=== PATIENT | female | born 1960 | race Caucasian/White ===

== ENCOUNTER 2016-07-01 19:17 | Emergency (ER) | payer OTHER ==
[2016-07-01] MEDS ORDERED: ONDANSETRON ODT 8 MG TAB ONE (19:21)
[2016-07-01] MEDS ORDERED: LIDOCAINE VIS-MYLANTA 30 ML UD PO ONE (19:50)
[2016-07-01 20:49] VITALS: TEMP 100; O2SAT 95
[2016-07-01] MEDS ORDERED: PROMETHAZINE HCL INJ 25 MG in SODIUM CHLORIDE 0.9% 50ML 50 ML IVPB ONE (21:25)
[2016-07-01] MEDS ORDERED: SUCRALFATE 1 GM/10 ML 1 GM UD PO ONE (21:25)
--- NOTE | 2016-07-01 21:38 | CT ---
EXAM DESCRIPTION: CT ABDOMEN PELVIS WITH IV CONTRAST CLINICAL HISTORY: 55 y/o Fcentral abd pain for 24 hours COMPARISON: None. TECHNIQUE: Contiguous axial images were obtained through the abdomen and pelvis following IV contrast. Reformatted images obtained. FINDINGS: Mild atelectatic changes. The liver, spleen, pancreas and adrenal glands appear unremarkable. Small renal cysts. No hydronephrosis. Changes from previous cholecystectomy. The abdominal aorta appears unremarkable. There is minimal wall thickening within loops of small bowel suggesting changes from infectious or inflammatory colitis. There is fluid within multiple non dilated loops of small bowel and there is fluid in the proximal colon. The transverse colon and descending colon are slightly distended with stool. The appendix appears unremarkable. Changes from previous hysterectomy. No free pelvic fluid. Postsurgical changes in the lower lumbar spine. Degenerative changes in the spine. There is mild curvature in the lower thoracic and lumbar spine convex left. IMPRESSION: Minimal wall thickening within some loops of pelvic small bowel suggesting changes from infectious or inflammatory colitis. No bowel obstruction. Electronically signed by: Brian Cano MD 07/01/2016 21:35
[2016-07-01] MEDS ORDERED: PROMETHAZINE HCL INJ 25 MG/ML VIAL ONE (21:54)
[2016-07-01] MEDS ORDERED: SODIUM CHLORIDE 0.9% 50ML 50 ML ONE (21:54)
[2016-07-01] MEDS ORDERED: SODIUM CHLORIDE 0.9% 1000ML 1,000 ML IVS ONE (22:04)
[2016-07-01] MEDS ORDERED: metroNIDAZOLE IV PREMIX 500MG 500 MG in PREMIX BAG 1 BAG IVPB ONE (22:04)
[2016-07-01] MEDS ORDERED: predniSONE 20 MG TAB PO ONE (22:04)
[2016-07-01] MEDS ORDERED: metroNIDAZOLE IV PREMIX 500MG 100 ML IVPB ONE (22:44)
[2016-07-01] MEDS ORDERED: CIPROFLOXACIN 500 MG TAB ONE (22:51)
[2016-07-01] MEDS ORDERED: KETOROLAC TROMETHAMINE INJ 30 MG/ML VIAL IV ONE (22:56)
--- NOTE | 2016-07-01 23:02 | ED.PDOC ---
History of Present Illness - General Chief Complaint: Abdominal Pain Stated Complaint: abd hurts.. Time Seen by Provider: 07/01/16 19:43 Source: patient Exam Limitations: no limitations - History of Present Illness Initial Comments: the patient is a 55-year-old female presenting to the emergency room secondary to central abdominal pain starting approximately 24 hours ago. She has had one episode of vomiting more extensive nausea. No diarrhea.no definite fevers. No recent trauma. No constipation. Pain is extending from the epigastric area down to just below the umbilicus. Timing/Duration: 24 hours Severity: moderate Improving Factors: nothing Worsening Factors: nothing Associated Symptoms: loss of appetite, malaise, nausea/vomiting, weakness Allergies/Adverse Reactions: Allergies NO KNOWN ALLERGY Allergy (Verified 07/01/16 20:15) Home Medications: Ambulatory Orders Metronidazole 500 mg PO TID #15 tab 07/01/16 Ondansetron [Zofran Odt] 4 mg PO Q4H PRN #10 tab 07/01/16 Review of Systems - Review of Systems Constitutional: States: malaise, weakness EENTM: States: no symptoms reported Respiratory: States: no symptoms reported Cardiology: States: no symptoms reported Gastrointestinal/Abdominal: States: see HPI Genitourinary: States: no symptoms reported Musculoskeletal: States: no symptoms reported Skin: States: no symptoms reported Neurological: States: no symptoms reported All other Systems: No Change from Baseline Past Medical History (General) - Patient Medical History Hx of COPD: Yes Hx Diabetes: No Surgical History: cholecystectomy - Vaccination History Hx Tetanus, Diphtheria Vaccination: No Hx Influenza Vaccination: Yes Hx Pneumococcal Vaccination: No Immunizations Up to Date: No - Social History Hx Tobacco Use: Yes Hx Alcohol Use: No Hx Substance Use: Yes Hx Substance Use Treatment: No Hx Depression: No - Female History Patient is a Female of Child Bearing Age (10 -59 yrs old): No Patient : No Family Medical History - Family History Mother Family History: Unknown Living Status: Unknown Physical Exam - Physical Exam General Appearance: Alert, Comfortable, No apparent distress Eye Exam: bilateral normal Ears, Nose, Throat: hearing grossly normal, normal ENT inspection, normal pharynx Neck: non-tender, full range of motion, supple Respiratory: chest non-tender, lungs clear, normal breath sounds, no respiratory distress, no accessory muscle use Cardiovascular/Chest: normal peripheral pulses, regular rate, rhythm, no edema Peripheral Pulses: radial,right: 2+, radial,left: 2+ Gastrointestinal/Abdominal: soft, no organomegaly, other - discomfort palpation as stated above. No definitive palpable mass. No definite rebound or peritoneal signs. Rectal Exam: deferred Back Exam: normal inspection Extremity: normal range of motion, non-tender, normal inspection, no pedal edema , normal capillary refill Neurologic: alert, normal mood/affect, oriented x 3 Skin Exam: normal color Comments: Vital Signs - 24 hr 07/01/16 07/01/16 20:16 22:10 Temperature 100 F H Pulse Rate [ 100 H 87 Left] Respiratory 20 20 Rate Blood Pressure 114/71 115/77 [Left Arm] O2 Sat by Pulse 95 95 Oximetry Progress - Progress Progress: 07/01/16 23:06 the patient is a 55-year-old female presenting to the emergency room due to abdominal pain for approximately 24 hours[address] Due to severity [address] scan was obtained which showed some mild thickening of the small bowel wall along with some fluid-filled loops. No definite this obstruction. CT scan is consistent with gastroenteritis and colitis. The patient was given antibiotics as well as a dose of Flagyl here. She'll be continued for 5 days as an outpatient on Flagyl. She needs to follow up with her primary care doctor early this coming week. She needs to keep herself well hydrated. She did receive a liter of IV fluids here. She will also be written for oral Zofran for as needed use. She needs to maintain a bland and primarily liquid diet for now. Lab work otherwise looks reassuring. ER warnings were given for any acute worsening. She did receive one oral dose of prednisone for anti-inflammatory purposes. - Results/Orders Results/Orders: 07/02/16 22:05 Ciprofloxacin [Cipro] 500 mg PO ONCE ONE 07/01/16 20:54 Hold Metformin x 48Hrs [id number] Laboratory Results - last 24 hr 07/01/16 07/01/16 07/01/16 19:55 20:05 20:19 WBC 6.8 RBC 4.06 L Hgb 12.4 Hct 36.5 MCV 89.7 MCH 30.5 MCHC 34.1 RDW 12.8 Plt Count 235 MPV 7.0 L Absolute Neuts (auto) 5.70 Absolute Lymphs (auto) 0.90 L Absolute Monos (auto) 0.20 Absolute Eos (auto) 0.00 Absolute Basos (auto) 0.00 Neutrophils % 82.7 H Lymphocytes % 13.2 L Monocytes % 3.3 Eosinophils % 0.4 L Basophils % 0.4 PT 11.2 INR 0.990 PTT (SP) 31.1 Sodium 133 L Potassium 3.4 L Chloride 104 Carbon Dioxide 21 Anion Gap 11.4 L BUN 19 H Creatinine 0.85 BUN/Creatinine Ratio 22.4 H Random Glucose 101 Serum Osmolality 268.8 L Calcium 9.0 Magnesium 1.7 L Total Bilirubin 0.4 AST 26 ALT 26 Alkaline Phosphatase 62 Creatine Kinase 63 CK-MB (CK-2) 1.2 CK-MB (CK-2) % Not Reportable Troponin I < 0.02 Serum Total Protein 7.0 Albumin 4.0 Globulin 3.0 Albumin/Globulin Ratio 1.3 Amylase 63 Lipase 27 TSH 1.24 Urine Color Yellow Urine Appearance Clear Urine pH 5.0 Ur Specific [place] >= 1.030 Urine Protein Negative Urine Glucose (UA) Negative Urine Ketones Trace Urine Blood Negative Urine Nitrite Negative Urine Bilirubin Negative Urine Urobilinogen 0.2 Ur Leukocyte Esterase Negative Urine RBC 1-3 Urine WBC 1-3 Ur Epithelial Cells 10-20 Urine Bacteria 1+ Urine Mucus Small Departure - Departure Disposition: Discharge to Home or Self Care Condition: Fair Departure Forms: ED Discharge - Pt. Copy, Patient Portal Self Enrollment Instructions: DI for Abdominal Pain-Adult Referrals: Courtney Hernandez NP [Primary Care Provider] - 1-5 Days Prescriptions: Metronidazole 500 mg PO TID #15 tab Ondansetron [Zofran Odt] 4 mg PO Q4H PRN #10 tab PRN Reason: Vomiting Home Medications: Ambulatory Orders Metronidazole 500 mg PO TID #15 tab 07/01/16 Ondansetron [Zofran Odt] 4 mg PO Q4H PRN #10 tab 07/01/16 Additional Instructions: the patient is a 55-year-old female presenting to the emergency room due to abdominal pain for approximately 24 hours[address] Due to severity [address] scan was obtained which showed some mild thickening of the small bowel wall along with some fluid-filled loops. No definite this obstruction. CT scan is consistent with gastroenteritis and colitis. The patient was given antibiotics as well as a dose of Flagyl here. She'll be continued for 5 days as an outpatient on Flagyl. She needs to follow up with her primary care doctor early this coming week. She needs to keep herself well hydrated. She did receive a liter of IV fluids here. She will also be written for oral Zofran for as needed use. She needs to maintain a bland and primarily liquid diet for now. Lab work otherwise looks reassuring. ER warnings were given for any acute worsening. She did receive one oral dose of prednisone for anti-inflammatory purposes. over -the-counter Pepcid can be taken daily until the antibiotic is completed to help reduce irritation from the antibiotic.
[2016-07-02 05:40] VITALS: BP 110/74
[2016-07-02] MEDS ORDERED: CIPROFLOXACIN 500 MG TAB PO ONE (22:05)
== END 2016-07-02 02:05 | disposition home or self-care (01) ==
LOC: ER 19:17
DX: R10.9 Unspecified abdominal pain (principal); J44.9 Chronic obstructive pulmonary disease, unspecified; Z87.891 Personal history of nicotine dependence
CPT/HCPCS: 36415; 74177; 80053; 81001; 82150; 82550; 82553; 83690; 83735; 84443; 84484; 85025; 85610; 85730; A4216; J1885; J2550; J3490; J7030; J7512

== ENCOUNTER → 2016-07-31 | Outpatient (CLI) | payer OTHER | LOC: YCFC.O 08:57 | PROVIDERS: ATTEND Anesthesiology Pain Medicine | DX: Z79.891 Long term (current) use of opiate analgesic (principal) | CPT/HCPCS: 80354; 80358; 80365; G0479 ==

== ENCOUNTER → 2016-08-09 | Outpatient (CLI) | payer OTHER | END | disposition home or self-care (01) | LOC: YCFC.O 08:12 | PROVIDERS: ATTEND Nurse Practitioner Family | DX: R53.83 Other fatigue (principal); E78.5 Hyperlipidemia, unspecified; J44.9 Chronic obstructive pulmonary disease, unspecified ==

== ENCOUNTER → 2016-11-21 | Outpatient (CLI) | payer OTHER | END | disposition home or self-care (01) | LOC: YCFC.O 14:44 | PROVIDERS: ATTEND Anesthesiology Pain Medicine | DX: Z79.891 Long term (current) use of opiate analgesic (principal) ==

== ENCOUNTER → 2017-02-13 | Outpatient (CLI) | payer OTHER | LOC: YCFC.O 14:28 | PROVIDERS: ATTEND Anesthesiology Pain Medicine | DX: Z79.891 Long term (current) use of opiate analgesic (principal) ==

== ENCOUNTER → 2017-02-16 | Outpatient (CLI) | payer OTHER ==
--- NOTE | 2017-02-19 06:16 | RAD ---
Procedure: XR LUMBAR SPINE 4 OR MORE VIEWS Exam Date: 02/16/2017 12:00 AM CDT Ordering Provider: Chon Lozoya Clinical Indication: LOW BACK PAIN. M54.5 Comparison: None Findings: Prior L4-L5 posterior fusion. Hardware appears intact. Flexion and extension views reveal no pathologic motion or focal acute abnormality. There is no acute fracture or subluxation. Vertebral body heights are maintained. Mild degenerative disc space height loss at L3-L4. Trace levoconvex scoliotic curvature. There are no lytic or sclerotic lesions. The sacroiliac joints are normal. Impression: 1. Postsurgical changes without acute hardware complication. Otherwise, nonacute examination of the lumbar spine. 2. Levoconvex scoliotic curvature and mild spondylosis as above. 3. No pathologic motion upon flexion and extension maneuvers. Electronically signed by: Gaudencio Villaseñor MD 02/19/2017 6:15 AM CDT
== END | disposition home or self-care (01) ==
LOC: RAD 13:30
PROVIDERS: ATTEND Anesthesiology Pain Medicine
DX: M47.896 Other spondylosis, lumbar region (principal)

== ENCOUNTER → 2017-04-02 | Outpatient (CLI) | payer OTHER ==
--- NOTE | 2017-04-02 15:52 | MAM ---
EXAM DESCRIPTION: 3D Screening BILATERAL CLINICAL HISTORY: 56 yearsFemaleSCREENING . No complaints. Remote family history of breast and ovarian cancer. Postmenopausal. Currently on HRT. Prior cyst aspiration and biopsy left breast.. COMPARISON: Right breast targeted ultrasound 03/19/2008. Right breast diagnostic 2-D digital mammographic examination on the same visit.. No prior reports available. TECHNIQUE: Bilateral CC and MLO projection full-field images, 3-D tomosynthesis digital mammographic technique. Also bilateral synthesized CC/ MLO full-field images. CAD not utilized. FINDINGS: The breast parenchymal density pattern is: Scattered areas of fibroglandular density. No skin thickening or nipple retraction biopsy site marker in the middle third of the left breast at the 300 clock position. Bilateral mostly well-circumscribed mass densities predominantly in the middle third of the left breast along the posterior nipple line and laterally. At least four masses are noted on the left. Same density as the surrounding fibroglandular tissue. Cannot exclude fibroadenomas or other solid tumors. There are also intramammary lymph nodes on the left. Two larger mass densities with well-circumscribed lobular margins in the upper outer quadrant of the middle third of the right breast larger one measuring 1.5 cm at the 900 clock position and a second mass slightly anterior and more medial at the 200 clock position measuring 1 cm. There may be a third mass near the posterior nipple line at the 900 clock position medial to the 1 cm mass. Possible posterior intramammary lymph node. No suspicious microcalcifications bilaterally. IMPRESSION: BI-RADS CATEGORY: 0 - INCOMPLETE- Need additional imaging evaluation. FOLLOW-UP: Recall for additional imaging: Bilateral targeted breast ultrasound in the regions of interest. Written communication concerning the IMPRESSION and Follow-up, will be mailed to the patient and referring health care provider. Electronically signed by: Andres Pal MD 04/02/2017 3:50 PM CDT
--- NOTE | 2017-04-02 17:01 | US ---
EXAM DESCRIPTION: Abdomen,Complete: US CLINICAL HISTORY: INCISIONAL HERNIA WITHOUT OBSTRUCTION OR GANGRENE COMPARISON: Digital mammogram screening examination on this visit. CT abdomen and pelvis with contrast 07/01/2016. TECHNIQUE: Transabdominal scannin-dimensional and Doppler modes. FINDINGS: The gallbladder is surgically absent. Common bile duct caliber 6.5 mm which is physiologic postcholecystectomy. No stones in the visualized portion of the duct. Not tender with transducer pressure. The liver demonstrates heterogeneous echogenicity; contour of the liver capsule is smooth where seen. No fluid around the liver. Intrahepatic biliary ducts are non-dilated. Craniocaudal dimension in the mid-clavicular axis is 12.7 cm. Pancreas head, body, and tail normal in size and echogenicity. Pancreatic duct is not dilated. Normal Doppler vascularity in the jerrica hepatis. Abdominal aorta diameter proximal 2.6 cm. Mid 1.9 cm. Distal 1.6 cm. IVC visualized; normal caliber. Spleen normal echogenicity; long axis measurement is 9.3 cm. No fluid in the spleno-renal fossa. Right kidney measures 9.6 x 5.6 x 4.1 cm. Heterogeneous Echogenicity 11 x 10 mm anechoic cyst projecting from the lower cortex. No hydronephrosis, no large calcifications, and no perinephric fluid. Contour smooth. Vascularity normal. Ureter not visualized. Left kidney measures 10.1 x 5.6 x 5.1 cm. 5.4 mm echogenic object in the cortex with question of posterior acoustic enhancement Echogenicity otherwise unremarkable with no hydronephrosis, no large calcifications, and no perinephric fluid. Contour smooth. Vascularity normal. Ureter not visualized. IMPRESSION: 1. Liver with heterogeneously increased density but not enlarged. Is there history of chronic disease or inflammatory process? Normal intrahepatic ducts. No ascites. Previous cholecystectomy. Common bile duct is prominent. Normal ultrasound of the pancreas and spleen. 2. Question of stone versus small fatty deposit in the left renal cortex. No stone on prior CT scan. Cortical cyst versus lipoma on the right kidney. Also seen on prior CT scan. No hydronephrosis bilaterally. Normal caliber of the abdominal aorta. Electronically signed by: Andres Pal MD 04/02/2017 4:59 PM CDT
== END | disposition home or self-care (01) ==
LOC: US 12:50
PROVIDERS: ATTEND Nurse Practitioner Family
DX: Z12.31 Encounter for screening mammogram for malignant neoplasm of breast (principal); K43.2 Incisional hernia without obstruction or gangrene
CPT/HCPCS: 76700; 77063; G0202

== ENCOUNTER → 2017-04-09 | Outpatient (CLI) | payer OTHER | END | disposition home or self-care (01) | LOC: YCFC.O 08:08 | PROVIDERS: ATTEND Nurse Practitioner Family | DX: E78.2 Mixed hyperlipidemia (principal); B18.2 Chronic viral hepatitis C; R53.83 Other fatigue; J34.9 Unspecified disorder of nose and nasal sinuses ==

== ENCOUNTER → 2017-04-10 | Outpatient (CLI) | payer OTHER ==
--- NOTE | 2017-04-10 14:30 | US ---
EXAM DESCRIPTION: Breast,Bilateral: Ultrasound CLINICAL HISTORY: 56 yearsFemaleABNORMAL MAMMO . Previous benign breast biopsy one year ago at outside facility. COMPARISON: Digital 3-D tomosynthesis screening bilateral breast 04/02/2017. TECHNIQUE: Transcutaneous scanning of the bilateral central breasts utilizing two-dimensional and Doppler modes. Scanning performed by the physician practice market manager and Dr. Pal. FINDINGS: Multiple bilateral hypoechoic to anechoic masses with well defined well-circumscribed borders and enhanced posterior acoustic characteristics. Most of these demonstrate parallel orientation. The largest mass is at the 200 clock position of the right breast 2 cm from the nipple with internal echoes but also with enhancing posterior features and parallel orientation. Dimensions are 1.5 x 1.4 x 1.1 cm with no vascularity. Most of the cysts in the left breast are retroareolar. Largest cyst in the left breast is 6 x 5 mm. There are also some dilated ducts bilaterally. IMPRESSION: BI-RADS CATEGORY: 2 - BENIGN FINDINGS. FOLLOW UP: Routine digital bilateral mammographic screening, one year interval from April 2017. The findings and the follow-up plan were reviewed in person with the patient after the examination. Written communication explaining the IMPRESSION and follow-up, will be mailed to the patient and referring health care provider. According to the [employer], yearly mammograms are recommended starting at age 40 and continuing as long as a woman is in good health. Any breast change noted on a breast self-exam should be reported promptly to the patient's healthcare provider. Breast MRI is recommended for women with an approximately 20-25% or greater lifetime risk of breast cancer, including women with a strong family history of breast or ovarian cancer and women who have been treated for Hodgkin's disease. A negative mammographic report should not delay tissue diagnosis in patients with significant clinical history or physical findings. Extremely dense breast tissue limits the sensitivity of digital mammography. Electronically signed by: Andres Pal MD 04/10/2017 2:29 PM CDT
== END | disposition home or self-care (01) ==
LOC: MAMMO 14:20
PROVIDERS: ATTEND Nurse Practitioner Family
DX: R92.8 Other abnormal and inconclusive findings on diagnostic imaging of breast (principal)

== ENCOUNTER 2017-04-21 09:18 | Emergency (ER) | payer OTHER ==
[2017-04-21 09:31] VITALS: BP 127/54; TEMP 97; O2SAT 95
--- NOTE | 2017-04-21 09:47 | ED.PDOC ---
History of Present Illness - General Chief Complaint: Dental/Mouth Stated Complaint: jaw swelling,abscess Time Seen by Provider: 04/21/17 09:37 Source: patient, RN notes reviewed Exam Limitations: no limitations - History of Present Illness Timing/Duration: getting worse - over the past few days Severity: moderate Improving Factors: other - mild improvement with ice Worsening Factors: eating Associated Symptoms: denies symptoms Allergies/Adverse Reactions: Allergies NO KNOWN ALLERGY Allergy (Verified 07/01/16 20:15) Home Medications: Ambulatory Orders Acetamin W/Cod #3 Tab [Tylenol #3 Tab] 1 ea PO Q4-6H PRN #20 tab 04/21/17 Albuterol Sulfate [Proair Hfa] 2 puff INH Q6H PRN 04/21/17 Buspirone HCl 7.5 mg PO BID PRN 04/21/17 Cyclobenzaprine HCl 10 mg PO BID 04/21/17 Estradiol 1 mg PO DAILY 04/21/17 Fenofibrate 160 mg PO DAILY 04/21/17 HYDROcodone 10MG/APAP 325MG [[place] 10325] 1 tab PO TID 04/21/17 Hydroxyzine HCl 50 mg PO PRN 04/21/17 Meloxicam 15 mg PO DAILY 04/21/17 Oxymetazoline Nasal [place] [Afrin Nasal [place]] 1 spray BNAS PRN 04/21/17 Penicillin V Potassium 500 mg PO QID #28 tab 04/21/17 Venlafaxine HCl [Venlafaxine HCl ER] 150 mg PO DAILY 04/21/17 Review of Systems - Review of Systems Constitutional: States: no symptoms reported EENTM: States: see HPI Respiratory: States: no symptoms reported Cardiology: States: no symptoms reported Gastrointestinal/Abdominal: States: no symptoms reported Genitourinary: States: no symptoms reported Musculoskeletal: States: no symptoms reported Skin: States: no symptoms reported Neurological: States: no symptoms reported Endocrine: States: no symptoms reported Hematologic/Lymphatic: States: no symptoms reported Past Medical History (General) - Patient Medical History Hx of COPD: Yes Hx Congestive Heart Failure: No Hx Diabetes: No Surgical History: cholecystectomy, Hysterectomy - Vaccination History Hx Tetanus, Diphtheria Vaccination: No Hx Influenza Vaccination: No Hx Pneumococcal Vaccination: No - Social History Hx Tobacco Use: Yes Hx Alcohol Use: No Hx Substance Use: Yes Hx Substance Use Treatment: No Hx Depression: Yes - Female History Patient : No Family Medical History - Family History Mother Family History: Unknown Living Status: Unknown Physical Exam - Physical Exam General Appearance: Alert, Comfortable - with ice pack to left jaw, Well Developed, Well Groomed, Well Hydrated, Well Nourished Eye Exam: bilateral normal Ears, Nose, Throat: hearing grossly normal, other - poor dentition. Soft tissue swelling left buccal region. 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 Will treat with oral abx and T3 for now until she is seen by dentist in 3 days. Pt is stable to d/c home with return precautions. Departure - Departure Clinical Impression: Dental abscess Time of Disposition: 10:06 Disposition: Discharge to Home or Self Care Condition: Fair Departure Forms: ED Discharge - Pt. Copy, Patient Portal Self Enrollment Instructions: Tooth Abscess Referrals: Jana Kelly NP [Primary Care Provider] - 1-2 Weeks Prescriptions: Acetamin W/Cod #3 Tab [Tylenol #3 Tab] 1 ea PO Q4-6H PRN #20 tab PRN Reason: Pain -- Moderate To Severe Penicillin V Potassium 500 mg PO QID #28 tab Home Medications: Ambulatory Orders Acetamin W/Cod #3 Tab [Tylenol #3 Tab] 1 ea PO Q4-6H PRN #20 tab 04/21/17 Albuterol Sulfate [Proair Hfa] 2 puff INH Q6H PRN 04/21/17 Buspirone HCl 7.5 mg PO BID PRN 04/21/17 Cyclobenzaprine HCl 10 mg PO BID 04/21/17 Estradiol 1 mg PO DAILY 04/21/17 Fenofibrate 160 mg PO DAILY 04/21/17 HYDROcodone 10MG/APAP 325MG [[place] 10/325] 1 tab PO TID 04/21/17 Hydroxyzine HCl 50 mg PO PRN 10/21/17 Meloxicam 15 mg PO DAILY 04/21/17 Oxymetazoline Nasal [place] [Afrin Nasal [place]] 1 spray BNAS PRN 04/21/17 Penicillin V Potassium 500 mg PO QID #28 tab 04/21/17 Venlafaxine HCl [Venlafaxine HCl ER] 150 mg PO DAILY 04/21/17 Additional Instructions: Continue ice as needed to help with pain and swelling. Take medicine as prescribed. Keep Dentist appointment as scheduled.
== END 2017-04-21 10:05 | disposition home or self-care (01) ==
LOC: ER 09:18
DX: K04.7 Periapical abscess without sinus (principal)

== ENCOUNTER → 2017-05-08 | Outpatient (CLI) | payer OTHER | END | disposition home or self-care (01) | LOC: YCFC.O 14:49 | PROVIDERS: ATTEND Anesthesiology Pain Medicine | DX: Z79.891 Long term (current) use of opiate analgesic (principal) ==

== ENCOUNTER → 2017-09-26 | Outpatient (CLI) | payer OTHER | LOC: RAD 08:26 | PROVIDERS: ATTEND Nurse Practitioner Family | DX: Z00.00 Encounter for general adult medical examination without abnormal findings (principal); R73.09 Other abnormal glucose ==

== ENCOUNTER 2018-03-04 14:43 | Emergency (ER) | payer OTHER ==
[2018-03-04 15:32] VITALS: TEMP 97.1
--- NOTE | 2018-03-04 16:53 | ED.PDOC ---
History of Present Illness - General Chief Complaint: Skin/Abrasion/Tear Stated Complaint: ITCHING TO CHEST AND UPPER ARMS Time Seen by Provider: 03/04/18 16:52 Source: patient Exam Limitations: no limitations - History of Present Illness Initial Comments: Vicki Monique 57 y/o female stated that she had pruritic rash on her arms a week ago was given antibiotics and antihistamines which got better stated has it during her anxiety attacks.Now after coming fom her moms house yesterday had it on her chest.No fever or chills. Timing/Duration: yesterday Severity: moderate Location: torso - chest wall anterior Improving Factors: nothing Worsening Factors: nothing Associated Symptoms: denies symptoms Allergies/Adverse Reactions: Allergies NO KNOWN ALLERGY Allergy (Verified 04/22/17 10:41) Home Medications: Ambulatory Orders Acetamin W/Cod #3 Tab [Tylenol #3 Tab] 1 ea PO Q4-6H PRN #20 tab 04/21/17 Albuterol Sulfate [Proair Hfa] 2 puff INH Q6H PRN 04/21/17 Buspirone HCl 7.5 mg PO BID PRN 04/21/17 Cyclobenzaprine HCl 10 mg PO BID 04/21/17 Estradiol 1 mg PO DAILY 04/21/17 Fenofibrate 160 mg PO DAILY 04/21/17 HYDROcodone 10MG/APAP 325MG [[place] 10] 1 tab PO TID 04/21/17 Hydroxyzine HCl 50 mg PO PRN 04/21/17 Meloxicam 15 mg PO DAILY 04/21/17 Oxymetazoline Nasal [place] [Afrin Nasal [place]] 1 spray BNAS PRN 04/21/17 Penicillin V Potassium 500 mg PO QID #28 tab 04/21/17 Venlafaxine HCl [Venlafaxine HCl ER] 150 mg PO DAILY 04/21/17 Doxepin HCl 10 mg PO TID #30 capsule 03/04/18 Triamcinolone Acetonide (Topic [Triamcinolone Acetonide] 0.1 % EX BID 14 Days # 240 gm 03/04/18 Review of Systems - Review of Systems Constitutional: States: no symptoms reported EENTM: States: no symptoms reported Respiratory: States: no symptoms reported Cardiology: States: no symptoms reported Gastrointestinal/Abdominal: States: no symptoms reported Genitourinary: States: no symptoms reported Musculoskeletal: States: back pain - chronic Skin: States: see HPI Past Medical History (General) - Patient Medical History Hx of COPD: Yes Hx Congestive Heart Failure: No Hx Diabetes: No Surgical History: cholecystectomy, tonsillectomy, Hysterectomy, other - back, hysterectomy,bladder lift - Vaccination History Hx Tetanus, Diphtheria Vaccination: No Hx Influenza Vaccination: No Hx Pneumococcal Vaccination: No - Social History Hx Tobacco Use: Yes - quit 2012 Hx Alcohol Use: No Hx Substance Use: Yes Hx Substance Use Treatment: No Hx Depression: Yes - Activities of Daily Living Patient Lives Alone: No - Female History Patient : No Family Medical History - Family History Mother Family History: Unknown Living Status: Unknown Hx Family Asthma: Yes - copd Hx Cardiac Disease: Yes - dad Hx Family Diabetes: Yes - dad Physical Exam - Physical Exam General Appearance: Alert, Comfortable, No apparent distress Eyes, Ears, Nose, Throat Exam: normal ENT inspection, pharynx normal Neck: non-tender, supple, normal inspection Cardiovascular/Chest: normal peripheral pulses, regular rate, rhythm, no murmur Respiratory: lungs clear, normal breath sounds, no respiratory distress Gastrointestinal/Abdominal: non tender, soft, no organomegaly Back Exam: normal inspection, no CVA tenderness Extremity: no pedal edema, no calf tenderness Neurologic: alert, oriented x 3 Skin Exam: warm/dry, normal color Skin Problem Location: torso - anterior chest wall Skin Character: erythema Lymphatic: no adenopathy Progress - Progress Progress: 03/04/18 17:16 Vital Signs - 8 hr 03/04/18 03/04/18 03/04/18 15:15 16:15 17:00 Temperature 97.1 F L Pulse Rate [ 77 70 left brachial] Respiratory 16 18 Rate Blood Pressure 136/94 151/85 [left brachial] O2 Sat by Pulse 80 L 100 98 Oximetry Departure - Departure Clinical Impression: Pruritic dermatitis Time of Disposition: 17:18 Disposition: Discharge to Home or Self Care Condition: Fair Departure Forms: ED Discharge - Pt. Copy, Patient Portal Self Enrollment Referrals: Jana Kelly NP [Primary Care Provider] - 1-2 Weeks Prescriptions: Doxepin HCl 10 mg PO TID #30 capsule Triamcinolone Acetonide (Topic [Triamcinolone Acetonide] 0.1 % EX BID 14 Days # 240 gm Home Medications: Ambulatory Orders Acetamin W/Cod #3 Tab [Tylenol #3 Tab] 1 ea PO Q4-6H PRN #20 tab 04/21/17 Albuterol Sulfate [Proair Hfa] 2 puff INH Q6H PRN 04/21/17 Buspirone HCl 7.5 mg PO BID PRN 04/21/17 Cyclobenzaprine HCl 10 mg PO BID 04/21/17 Estradiol 1 mg PO DAILY 04/21/17 Fenofibrate 160 mg PO DAILY 04/21/17 HYDROcodone 10MG/APAP 325MG [[place] ] 1 tab PO TID 04/21/17 Hydroxyzine HCl 50 mg PO PRN 04/21/17 Meloxicam 15 mg PO DAILY 04/21/17 Oxymetazoline Nasal [place] [Afrin Nasal [place]] 1 spray BNAS PRN 04/21/17 Penicillin V Potassium 500 mg PO QID #28 tab 04/21/17 Venlafaxine HCl [Venlafaxine HCl ER] 150 mg PO DAILY 04/21/17 Doxepin HCl 10 mg PO TID #30 capsule 03/04/18 Triamcinolone Acetonide (Topic [Triamcinolone Acetonide] 0.1 % EX BID 14 Days # 240 gm 03/04/18 Additional Instructions: Follow up with primary Md 06 Mar 2018
[2018-03-04 17:02] VITALS: O2SAT 98
[2018-03-04] MEDS ORDERED: diphenhydrAMINE HCL 50 MG/ML VIAL IM ONE (17:16)
[2018-03-04] MEDS ORDERED: DEXAMETHASONE INJ 4 MG/ML VIAL IM ONE (17:16)
[2018-03-04 17:32] VITALS: BP 140/87
== END 2018-03-04 17:53 | disposition home or self-care (01) ==
LOC: ER 14:43
DX: L30.9 Dermatitis, unspecified (principal); J44.9 Chronic obstructive pulmonary disease, unspecified; F32.9 Major depressive disorder, single episode, unspecified; Z87.891 Personal history of nicotine dependence; Z79.899 Other long term (current) drug therapy
CPT/HCPCS: J1100; J1200

== ENCOUNTER → 2018-03-26 | Outpatient (CLI) | payer OTHER ==
--- NOTE | 2018-03-27 11:21 | MAM ---
EXAM DESCRIPTION: 3D Screening BILATERAL : Digital Mammography. CLINICAL HISTORY: 57 years Female ANNUAL SCREENING . No complaints. No personal history of breast cancer. Remote family history of breast cancer. Childbirth. Postmenopausal 11 years. Currently on HRT. Benign left breast biopsy.. Lifetime risk of developing breast cancer (Tyrer-Cuzick model)(%): 8 COMPARISON: Bilateral screening digital breast tomosynthesis 04/02/2017. Targeted bilateral breast ultrasound 04/10/2017. TECHNIQUE: Bilateral CC and MLO projection full-field images, Digital tomosynthesis mammographic technique. Bilateral digital 2-D full-field MLO images. CAD not utilized. FINDINGS: The breast parenchymal density pattern is: Scattered areas of fibroglandular density. No skin thickening or nipple retraction. Bilateral fibroglandular density present on the anterior middle third with solitary microcalcifications and nodular densities. One of these masslike densities in the upper outer quadrant of the middle third of the right breast has decreased significantly in size since the prior study. No new focal, stellate mass or density, focal asymmetry , and no suspicious microcalcifications bilaterally. IMPRESSION: Benign exam. BIRAD CATEGORY: 2 BENIGN FINDINGS. RECOMMENDATIONS: FOLLOW UP: Routine digital bilateral screening, one year interval from March 2018. Written communication explaining the IMPRESSION and follow-up, will be mailed to the patient and referring health care provider. According to the [employer], yearly mammograms are recommended starting at age 40 and continuing as long as a woman is in good health. Any breast change noted on a breast self-exam should be reported promptly to the patient's healthcare provider. Breast MRI is recommended for women with an approximately 20-25% or greater lifetime risk of breast cancer, including women with a strong family history of breast or ovarian cancer and women who have been treated for Hodgkin's disease. A negative mammographic report should not delay tissue diagnosis in patients with significant clinical history or physical findings. Extremely dense breast tissue limits the sensitivity of digital mammography. Electronically signed by: Andres Pal MD 03/27/2018 11:20 AM CDT
== END ==
LOC: YCFC.O 10:32
PROVIDERS: ATTEND Nurse Practitioner Family
DX: Z12.31 Encounter for screening mammogram for malignant neoplasm of breast (principal); E78.2 Mixed hyperlipidemia; B18.2 Chronic viral hepatitis C

== ENCOUNTER → 2018-04-09 | Outpatient (CLI) | payer OTHER ==
--- NOTE | 2018-04-09 17:08 | CT ---
Procedure: CT LUNG SCREENING Exam Date: 04/09/2018. Ordering Provider: Sami Mcguire Clinical Indication: Z13.9 This patient meets eligibility criteria for low-dose CT lung cancer screening. Comparison: CT scan the abdomen 07/01/2016. Technique: Using a multislice scanner, sequential helical axial imaging was obtained in the thorax, 2.5 mm thickness, 2.5 mm separation, from the level of the thoracic inlet through the lung bases without IV contrast. A low dose protocol was utilized. CTDI: 1.75 mGy. 120. kVp. 45 mA. 2D sagittal and coronal reconstructed images, 6.0 mm thickness, were obtained. This exam was performed according to our departmental dose optimization program which includes use of automated exposure control, adjustment of the mA and/or kV according to patient size and/or use of iterative reconstruction technique. FINDINGS: Lungs and large airways: No abnormal nodules. Minimal dilation of the airways. No mass or infiltrate. Pleura: Minimal thickening bilaterally. No effusion or pneumothorax. Mediastinum and hood: Evaluation limited by screening technique and lack of IV contrast. No large lymph nodes or dominant soft tissue masses. Heart and great vessels: Questionable calcification of the lower lateral left pericardium. Chest wall, lower neck, axillae: Heterogeneous density of the thyroid gland. No enlarged lymph nodes or large soft tissue masses. Upper abdomen: Included peritoneal cavity with no fluid or soft tissue mass. Bones: Limited by MIP technique. Minimal spondylosis. Broad mild dextroscoliosis. IMPRESSION: Minimal dilated airspaces more in the upper lobes. No nodules masses or infiltrates. Lung RADS category Category 1 - No nodule or definitely benign nodules (probability of malignancy less than 1%). Follow-up: Continue annual screening with Low Dose Chest CT in 12 months. Electronically signed by: Andres Pal MD 04/09/2018 5:06 PM CDT
== END ==
LOC: CT 09:00
PROVIDERS: ATTEND Family Medicine
DX: Z87.891 Personal history of nicotine dependence (principal); Z13.9 Encounter for screening, unspecified

== ENCOUNTER 2018-09-15 19:49 | Emergency (ER) | payer OTHER ==
[2018-09-15 20:42] VITALS: O2SAT 96
--- NOTE | 2018-09-15 20:42 | RAD ---
EXAM:Chest,2 Views CLINICAL INDICATION: Cough COMPARISON: 10/09/2006 FINDINGS:Two views of the chest were obtained. The heart size is normal. The pulmonary vascularity is unremarkable. The lungs are clear. There is no consolidation, infiltrate, pleural effusion, or pneumothorax. IMPRESSION: No evidence of active pulmonary disease. Electronically signed by: Igor Green MD 09/15/2018 8:39 PM CDT
--- NOTE | 2018-09-15 20:55 | ED.PDOC ---
History of Present Illness - General Chief Complaint: Respiratory Problem Stated Complaint: cough, congestion, fever Time Seen by Provider: 09/15/18 20:52 Source: patient Exam Limitations: no limitations - History of Present Illness Comments: Vicki Monique 58 y/o female came to er with non productive cough,nasal congestion and body aches for 3 days.Stated has history of copd. Timing/Duration: just prior to arrival, other - see hpi Cough Quality/Degree: dry cough Possible Cause: occasional episodes Improving Factors: nothing Worsening Factors: other - weather Associated Symptoms: other - see hpi Respiratory Risk Factors: no cause identified Allergies/Adverse Reactions: Allergies NO KNOWN ALLERGY Allergy (Verified 09/15/18 20:08) Home Medications: Ambulatory Orders Acetamin W/Cod #3 Tab [Tylenol #3 Tab] 1 ea PO Q4-6H PRN #20 tab 04/21/17 Albuterol Sulfate [Proair Hfa] 2 puff INH Q6H PRN 04/21/17 Buspirone HCl 7.5 mg PO BID PRN 04/21/17 Cyclobenzaprine HCl 10 mg PO BID 04/21/17 Estradiol 1 mg PO DAILY 04/21/17 Fenofibrate 160 mg PO DAILY 04/21/17 HYDROcodone 10MG/APAP 325MG [[place] 10325] 1 tab PO TID 04/21/17 Hydroxyzine HCl 50 mg PO PRN 04/21/17 Meloxicam 15 mg PO DAILY 04/21/17 Oxymetazoline Nasal [place] [Afrin Nasal [place]] 1 spray BNAS PRN 04/21/17 Penicillin V Potassium 500 mg PO QID #28 tab 04/21/17 Venlafaxine HCl [Venlafaxine HCl ER] 150 mg PO DAILY 04/21/17 Doxepin HCl 10 mg PO TID #30 capsule 03/04/18 Triamcinolone Acetonide (Topic [Triamcinolone Acetonide] 0.1 % EX BID 14 Days #240 gm 03/04/18 Azithromycin [Zithromax Z-Jamel] 250 mg PO DAILY #6 tab 09/15/18 Benzonatate [place] [Tessalon [place]] 200 mg PO TID PRN #60 cap 09/15/18 predniSONE 20 mg PO DAILY #7 tab 09/15/18 Review of Systems - Review of Systems Constitutional: States: no symptoms reported EENTM: States: see HPI, nose congestion Respiratory: States: see HPI, cough Cardiology: States: no symptoms reported Gastrointestinal/Abdominal: States: no symptoms reported Genitourinary: States: no symptoms reported All other Systems: Reviewed and Negative, No Change from Baseline Past Medical History (General) - Patient Medical History Hx Seizures: No Hx Stroke: No Hx Dementia: No Hx Asthma: Yes Hx of COPD: Yes Hx Cardiac Disorders: No Hx Congestive Heart Failure: No Hx Pacemaker: No Hx Hypertension: No Hx Thyroid Disease: No Hx Diabetes: No Hx Gastroesophageal Reflux: No Hx Renal Disease: No Hx Cancer: No Hx of HIV: No Hx Hepatitis C: No Hx MRSA: No Surgical History: cholecystectomy, tonsillectomy, other - hysterectomy,back - Vaccination History Hx Tetanus, Diphtheria Vaccination: No Hx Influenza Vaccination: No Hx Pneumococcal Vaccination: No - Social History Hx Tobacco Use: Yes - quit 2012 Hx Alcohol Use: No Hx Substance Use: No Hx Substance Use Treatment: No Hx Depression: Yes - Female History Patient : No Family Medical History - Family History Mother Family History: Unknown Living Status: Hx Family Asthma: Yes - copd Hx Cardiac Disease: Yes - dad Hx Family Diabetes: Yes - dad Physical Exam - Physical Exam General Appearance: Alert, Comfortable, No apparent distress Eye Exam: bilateral normal ENT Exam: normal ENT inspection, hearing grossly normal, TMs normal, pharynx normal Neck: non-tender, supple, trachea midline Respiratory: chest non-tender, lungs clear, normal breath sounds Cardiovascular/Chest: normal peripheral pulses, regular rate, rhythm, no murmur Gastrointestinal/Abdominal: non tender, soft Extremity: normal inspection, no calf tenderness Neurologic: alert, oriented x 3 Skin Exam: normal color, warm/dry Progress - Progress Progress: 09/15/18 20:57 Flu swab negative;Discuss test result with patient - EKG/XRAY/CT XRAY: chest - no acute abnormalities Departure - Departure Clinical Impression: Upper respiratory infection Qualifiers: URI type: unspecified URI Qualified Code(s): J06.9 - Acute upper respiratory infection, unspecified Time of Disposition: 21:04 Disposition: Discharge to Home or Self Care Departure Forms: ED Discharge - Pt. Copy, Patient Portal Self Enrollment Instructions: Cough, Runny Nose, and the Common Cold (DC), How to Do a Nasal Rinse Referrals: Jana Kelly NP [Primary Care Provider] - 1-2 Weeks Prescriptions: Azithromycin [Zithromax Z-Jamel] 250 mg PO DAILY #6 tab Benzonatate [place] [Tessalon [place]] 200 mg PO TID PRN #60 cap PRN Reason: Cough predniSONE 20 mg PO DAILY #7 tab Home Medications: Ambulatory Orders Acetamin W/Cod #3 Tab [Tylenol #3 Tab] 1 ea PO Q4-6H PRN #20 tab 04/21/17 Albuterol Sulfate [Proair Hfa] 2 puff INH Q6H PRN 04/21/17 Buspirone HCl 7.5 mg PO BID PRN 04/21/17 Cyclobenzaprine HCl 10 mg PO BID 04/21/17 Estradiol 1 mg PO DAILY 04/21/17 Fenofibrate 160 mg PO DAILY 04/21/17 HYDROcodone 10MG/APAP 325MG [[place] 10] 1 tab PO TID 04/21/17 Hydroxyzine HCl 50 mg PO PRN 04/21/17 Meloxicam 15 mg PO DAILY 04/21/17 Oxymetazoline Nasal [place] [Afrin Nasal [place]] 1 spray BNAS PRN 04/21/17 Penicillin V Potassium 500 mg PO QID #28 tab 04/21/17 Venlafaxine HCl [Venlafaxine HCl ER] 150 mg PO DAILY 04/21/17 Doxepin HCl 10 mg PO TID #30 capsule 03/04/18 Triamcinolone Acetonide (Topic [Triamcinolone Acetonide] 0.1 % EX BID 14 Days #240 gm 03/04/18 Azithromycin [Zithromax Z-Jamel] 250 mg PO DAILY #6 tab 09/15/18 Benzonatate [place] [Tessalon [place]] 200 mg PO TID PRN #60 cap 09/15/18 predniSONE 20 mg PO DAILY #7 tab 09/15/18 Additional Instructions: Continue with all home medications;Follow up with primary Md 18 Sep 2018 for recheck as needed
[2018-09-15] MEDS ORDERED: BENZONATATE PERLES 100 MG CAP PO ONE (21:01)
[2018-09-15] MEDS ORDERED: AZITHROMYCIN 250 MG TAB PO ONE (21:01)
[2018-09-15] MEDS ORDERED: predniSONE 20 MG TAB PO ONE (21:01)
[2018-09-15 21:42] VITALS: BP 104/76; TEMP 98.7
== END 2018-09-15 21:42 | disposition home or self-care (01) ==
LOC: ER 19:49
DX: J06.9 Acute upper respiratory infection, unspecified (principal); J44.9 Chronic obstructive pulmonary disease, unspecified; F32.9 Major depressive disorder, single episode, unspecified; Z79.899 Other long term (current) drug therapy; Z87.891 Personal history of nicotine dependence
CPT/HCPCS: 71046; 87502; J7512; Q0144

== ENCOUNTER → 2018-10-22 | Outpatient (CLI) | payer OTHER ==
--- NOTE | 2018-10-22 22:16 | US ---
EXAM DESCRIPTION: Liver: ULTRASOUND. CLINICAL HISTORY: RIGHT UPPER QUADRANT PAIN COMPARISON: Barium esophagram on the same visit. TECHNIQUE: Transabdominal scannin-dimensional and Doppler modes. FINDINGS: Gallbladder: Previous cholecystectomy. No fluid in the gallbladder fossa. Non-tender scanning with transducer pressure. Common bile duct: caliber 6.8 mm upper normal limits. Liver: Increased echogenicity; contour liver capsule smooth where seen. No fluid around the liver. Intrahepatic biliary ducts normal caliber. Doppler hepatopedal flow portal vein. 8.4 mm. Long axis right lobe 13.4 cm. Pancreas: normal size and echogenicity. Duct not seen. Right kidney: long axis measures 10.2 cm. Normal cortical echogenicity. 10 mm cortical thickness. No hydronephrosis IMPRESSION: Steatosis of the liver but no enlargement. Normal ducts and normal vascular flow. Smooth capsule with no ascites. Previous cholecystectomy with no fluid and no tenderness with scanning. Common bile duct upper normal caliber. Pancreas unremarkable. Right kidney with thin cortex but otherwise unremarkable. Electronically signed by: Andres Pal MD 10/22/2018 10:13 PM CDT
--- NOTE | 2018-10-22 22:29 | RAD ---
EXAM DESCRIPTION: Barium Swallow: Rad-Fluoroscopy. CLINICAL HISTORY: DYSPHAGIA Food stuck in the throat. More to the left. Difficult swallowing. COMPARISON: Ultrasound of the liver on the same visit. TECHNIQUE: The patient swallowed barium pill with water. The patient swallowed gas-producing granules, water, and heavy density barium under fluoroscopic visualization. The images were obtained with the patient standing and horizontal. Patient drank medium density barium through a straw in the semi-prone position. 63 fluoroscopic cine loop images. 13 static fluoroscopic images. Total fluoroscopy time was 2.6 minutes. DAP: 21.7 Gy-cm2.. FINDINGS: Patient swallowed the barium pill with 4 sips of water, with no significant delay in transit. In regards to the swallowing mechanism, there is no premature spillage from the oral phase to the pharyngeal phase. No asymmetry. No laryngeal penetration or aspiration. Primary peristaltic wave is unremarkable. No mucosal lesions or mass effect. Surgical clips in the right upper quadrant consistent with history of cholecystectomy. Lumbar fusion construct is visualized. A small sliding hiatal hernia is demonstrated but fills only with gas, not barium. No significant gastric intrinsic lesions or mass effect on the stomach. IMPRESSION: 1. No delay in transit of swallowing from the oral cavity to the stomach. Normal primary peristaltic wave. 2. No mucosal lesions in the esophagus and no mass effect. 3. Small sliding hiatal hernia that demonstrates gas reflux but no fluid reflux. Electronically signed by: Andres Pal MD 10/22/2018 10:26 PM CDT
== END ==
LOC: RAD 09:00
PROVIDERS: ATTEND Nurse Practitioner Family
DX: K44.9 Diaphragmatic hernia without obstruction or gangrene (principal); K76.0 Fatty (change of) liver, not elsewhere classified; Z90.49 Acquired absence of other specified parts of digestive tract

== ENCOUNTER → 2018-11-13 | Outpatient (CLI) | payer OTHER ==
--- NOTE | 2018-11-14 09:46 | RAD ---
EXAM DESCRIPTION: Hand,Left 3 Views CLINICAL HISTORY: PAIN IN LEFT HAND COMPARISON: None Available. TECHNIQUE: AP, LATERAL, AND OBLIQUE radiographs of the left hand were obtained. FINDINGS: The visualized bones appear well mineralized. No acute fracture or dislocation. The soft tissues appear grossly unremarkable. Flexion deformity of the distal interphalangeal joint of the fifth digit could be positional or secondary to injury. Degenerative changes are identified in the first carpometacarpal joint and interphalangeal joints. IMPRESSION: Flexion deformity of the distal interphalangeal joint of the fifth digit could be positional or secondary to injury. Clinical correlation is recommended. Electronically signed by: Jessica Kelly MD 11/14/2018 9:44 AM CDT
== END ==
LOC: RAD 13:50
PROVIDERS: ATTEND Nurse Practitioner Family
DX: M79.642 Pain in left hand (principal)

== ENCOUNTER → 2019-03-27 | Outpatient (CLI) | payer OTHER | LOC: LAB.O 08:00 | PROVIDERS: ATTEND Nurse Practitioner Family | DX: Z00.01 Encounter for general adult medical examination with abnormal findings (principal); E78.2 Mixed hyperlipidemia ==

== ENCOUNTER → 2019-04-10 | Outpatient (CLI) | payer OTHER ==
--- NOTE | 2019-04-11 09:47 | CT ---
Procedure: CT LUNG SCREENING Exam Date: 04/10/2019. Ordering Provider: Sami Mcguire Clinical Indication: PERSONAL HISTORY OF TOBACCO USE smoking cessation 6 years. 10-20 pack years. This patient meets eligibility criteria for low-dose CT lung cancer screening. Comparison: Low-dose CT lung cancer screening examination 04/09/2018. Technique: Using a multislice scanner, sequential helical axial imaging was obtained in the thorax, 2.5 mm thickness, 2.5 mm separation, from the level of the thoracic inlet through the lung bases without IV contrast. A low dose protocol was utilized for BMI less than 30: BMI: 29. CTDI: 1.76 mGy. 120. kVp. 45 mA. DLP 61.0 mGy-centimeters. 2D sagittal and coronal reconstructed images, 6.0 mm thickness, were obtained. This exam was performed according to our departmental dose optimization program which includes use of automated exposure control, adjustment of the mA and/or kV according to patient size and/or use of iterative reconstruction technique. Nodule measurements under 10 mm are given as mean value of 3 axes diameters. FINDINGS: Lungs and large airways: The superior apices bilaterally were not scanned. Slight septal thickening bilaterally in the peripheral lung zones. Also in the medial retrohilar recess on the right. Minimal pleural-parenchymal scarring versus posterior dependent atelectasis right lower lobe. Minimal pleural-parenchymal scarring left base. No abnormal nodules or masses. No focal infiltrates. Pleura and space: Negative, but with observation that pleural apices were not scanned. Mediastinum and hood: evaluation limited by low dose technique and lack of IV contrast. Unremarkable. Heart and great vessels: No calcifications. Chest wall, lower neck, axillae: Evaluation also limited by same factors as described above. Negative. Upper abdomen: Evaluation limited by low-dose technique. No free air or free fluid. Normal size and density of the adrenal glands and spleen. Surgical clips gallbladder fossa. Osseous structures: Evaluation limited by low dose MIP technique. Mild mid thoracic dextroscoliosis. IMPRESSION: The exam is incomplete with the upper lung apices bilaterally not included in the study. The patient will return to complete the study; addendum report will be generated with lung RADS assessment. Electronically signed by: Andres Pal MD 04/11/2019 9:45 AM CDT
--- NOTE | 2019-04-11 16:12 | MAM ---
EXAM DESCRIPTION: 3D Screening BILATERAL : Digital Mammography. CLINICAL HISTORY: 58 years Female ANNUAL SCREENING . No complaints. No personal or family history of breast cancer. Menarche and 18. Childbirth. Postmenopausal 15+ years. Currently on HRT. Prior cyst aspiration biopsy benign left breast. Lifetime risk of developing breast cancer (Tyrer-Cuzick model)(%): 8.3. COMPARISON: Bilateral screening digital breast tomosynthesis 03/26/2018 and 02 April 2017 bilateral targeted breast ultrasound 10 April 2017.. TECHNIQUE: Bilateral CC and MLO projection full-field images, digital tomosynthesis mammographic technique. Bilateral digital 2-D full-field MLO images. CAD not available for tomosynthesis or 2-D images. FINDINGS: The breast parenchymal density pattern is: Scattered areas of fibroglandular density. No skin thickening or nipple retraction. Biopsy site marker superior posterior left breast. Stable group of microcalcifications posterior left breast. Bilateral solitary microcalcifications. Nodular-type fibroglandular tissues bilaterally. No new focal, stellate mass or density, focal asymmetry , and no suspicious microcalcifications bilaterally. Stable mammograms compared to prior study. IMPRESSION: Benign exam. BIRAD CATEGORY: 2 BENIGN FINDINGS. RECOMMENDATIONS: FOLLOW UP: Routine digital bilateral mammographic screening, one year interval from April 2019. Written communication explaining the IMPRESSION and follow-up, will be mailed to the patient and referring health care provider. According to the [employer], yearly mammograms are recommended starting at age 40 and continuing as long as a woman is in good health. Any breast change noted on a breast self-exam should be reported promptly to the patient's healthcare provider. Breast MRI is recommended for women with an approximately 20-25% or greater lifetime risk of breast cancer, including women with a strong family history of breast or ovarian cancer and women who have been treated for Hodgkin's disease. A negative mammographic report should not delay tissue diagnosis in patients with significant clinical history or physical findings. Extremely dense breast tissue limits the sensitivity of digital mammography. Electronically signed by: Andres Pal MD 04/11/2019 4:11 PM CDT
== END ==
LOC: MAMMO 10:00
PROVIDERS: ATTEND Family Medicine
DX: Z12.31 Encounter for screening mammogram for malignant neoplasm of breast (principal); Z87.891 Personal history of nicotine dependence
CPT/HCPCS: 77063; 77067; G0297

== ENCOUNTER → 2019-05-22 | Outpatient (CLI) | payer OTHER | LOC: YCFC.O 13:07 | PROVIDERS: ATTEND Nurse Practitioner | DX: R82.90 Unspecified abnormal findings in urine (principal) ==

== ENCOUNTER 2019-07-15 10:33 | Emergency (ER) | payer OTHER ==
[2019-07-15 10:49] VITALS: O2SAT 96
[2019-07-15] MEDS ORDERED: ONDANSETRON ODT 8 MG TAB SL ONE (11:25)
[2019-07-15] MEDS ORDERED: HYDROmorphone HCL INJ 2 MG/ML VIAL IM ONE (11:25)
--- NOTE | 2019-07-15 12:09 | RAD ---
EXAM DESCRIPTION: Foot,Left 3 Views CLINICAL HISTORY: fall with left foot/ankle/knee/hip/back pain COMPARISON: None Available. TECHNIQUE: AP, LATERAL, AND OBLIQUE FINDINGS: The visualized bones appear well mineralized. No acute fracture or dislocation. Mild osteoarthritis of the first metatarsophalangeal joint. The soft tissues appear grossly unremarkable. IMPRESSION: No acute traumatic abnormality of the left foot. Electronically signed by: Jessica Kelly MD 07/15/2019 12:08 PM [facility]
--- NOTE | 2019-07-15 12:09 | RAD ---
EXAM DESCRIPTION: Ankle,Left 3 Views CLINICAL HISTORY: 58 years Female, fall with left foot/ankle/knee/hip/back pain COMPARISON: None available. TECHNIQUE: AP, oblique and lateral radiographs. FINDINGS: The visualized bones appear well mineralized. No acute fracture or dislocation. The ankle mortise is intact. Soft tissue swelling along the lateral aspect of the ankle. IMPRESSION: Soft tissue swelling along the lateral aspect of the ankle. No underlying acute bony abnormality. Electronically signed by: Jessica Kelly MD 07/15/2019 12:07 PM [facility]
--- NOTE | 2019-07-15 12:10 | RAD ---
EXAM DESCRIPTION: Knee,Left Complete CLINICAL HISTORY: 58 years Female, fall with left foot/ankle/knee/hip/back pain TECHNIQUE: 3 views of the left knee were performed. COMPARISON: None available. FINDINGS: The visualized bones appear well mineralized. No acute fracture or dislocation. Mild tricompartmental osteoarthritis, worse in the medial tibiofemoral compartment. The soft tissues appear grossly unremarkable. IMPRESSION: Mild tricompartmental osteoarthritis, worse in the medial tibiofemoral compartment. Electronically signed by: Jessica Kelly MD 07/15/2019 12:08 PM [facility]
--- NOTE | 2019-07-15 12:11 | RAD ---
EXAM DESCRIPTION: Pelvis CLINICAL HISTORY: 58 years Female, fall with left foot/ankle/knee/hip/back pain COMPARISON: None. TECHNIQUE: AP radiograph of the pelvis was performed. FINDINGS: The pelvic ring appears grossly intact on this single AP radiograph. No acute fracture or dislocation. Bilateral sacroiliac joints appear normal. Mild bilateral hip osteoarthritis. The visualized lumbo-sacral spine demonstrates mild degenerative changes. IMPRESSION: Single AP radiograph of the pelvis demonstrates grossly intact pelvic ring. Mild bilateral hip osteoarthritis. Electronically signed by: Jessica Kelly MD 07/15/2019 12:10 PM [facility]
--- NOTE | 2019-07-15 12:11 | RAD ---
EXAM DESCRIPTION: Lumbar Spine 3 Views CLINICAL HISTORY: 58 years Female, fall with left foot/ankle/knee/hip/back pain COMPARISON: Radiographs of the lumbar spine dated 02/16/2017. FINDINGS: Straightening of the normal lordotic curvature of the lumbar spine. Posterior spinal fixation hardware is noted traversing L4 and L5 vertebral bodies. The vertebral body heights are well-maintained with no acute compression deformity. Multilevel degenerative disc disease and facet arthropathy is noted, worse from L3-L4 through L5-S1 levels. No evidence of spondylolysis or spondylolisthesis. The visualized prevertebral and paravertebral soft tissues appear grossly unremarkable. IMPRESSION: Multilevel degenerative disc disease and facet arthropathy is noted, worse from L3-L4 through L5-S1 levels. Posterior spinal fixation hardware is noted traversing L4 and L5 vertebral bodies. Electronically signed by: Jessica Kelly MD 07/15/2019 12:09 PM [facility]
--- NOTE | 2019-07-15 13:33 | ED.PDOC ---
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 Occurred: just prior to arrival, this morning Severity: severe Pain Location: pelvis, back, lower extremity Method of Injury: fall Improving Factors: nothing Worsening Factors: movement Loss of Consciousness: no loss of consciousness Associated Symptoms (Fall): trouble walking Allergies/Adverse Reactions: Allergies NO KNOWN ALLERGY Allergy (Verified 09/15/18 20:08) Home Medications: Ambulatory Orders Albuterol Sulfate [Proair Hfa] 2 puff INH Q6H PRN 04/21/17 Estradiol 1 mg PO DAILY 04/21/17 Fenofibrate 160 mg PO DAILY 04/21/17 Venlafaxine HCl [Venlafaxine HCl ER] 75 mg PO DAILY 04/21/17 Acetamin W/Cod #3 Tab [Tylenol w/CODEINE #3] 1 tablet PO Q6H #12 tab 07/15/19 Buspirone HCl [Buspirone Hydrochloride] 7.5 mg PO PRN 07/15/19 Celecoxib [CeleBREX] 100 mg PO BID 07/15/19 Fluoxetine HCl [PROzac] 20 mg PO DAILY 07/15/19 Lamotrigine 100 mg PO BID 07/15/19 Montelukast [Singulair] 10 mg PO DAILY 07/15/19 Tiotropium [place] Monohydrate [Spiriva Handihaler] 1 puff IN DAILY 07/15/19 Trazodone HCl 150 mg PO BEDTIME 07/15/19 tiZANidine [Zanaflex] 4 mg PO BID 07/15/19 Review of Systems - Review of Systems Constitutional: States: no symptoms reported, see HPI EENTM: States: no symptoms reported Respiratory: States: no symptoms reported Cardiology: States: no symptoms reported Gastrointestinal/Abdominal: States: no symptoms reported Genitourinary: States: no symptoms reported Musculoskeletal: States: back pain, joint pain, joint swelling, muscle stiffness . Denies: neck pain Skin: States: no symptoms reported Neurological: States: no symptoms reported. Denies: headache, numbness, paresthesia, tingling Endocrine: States: no symptoms reported Hematologic/Lymphatic: States: no symptoms reported All other Systems: Reviewed and Negative Past Medical History (General) - Patient Medical History Hx Seizures: No Hx Stroke: No Hx Dementia: No Hx Asthma: Yes Hx of COPD: Yes Hx Cardiac Disorders: No Hx Congestive Heart Failure: No Hx Pacemaker: No Hx Hypertension: No Hx Thyroid Disease: No Hx Diabetes: No Hx Gastroesophageal Reflux: No Hx Renal Disease: No Hx Cancer: No Hx of HIV: No Hx Hepatitis C: No Hx MRSA: No Surgical History: cholecystectomy, Hysterectomy - Vaccination History Hx Tetanus, Diphtheria Vaccination: No Hx Influenza Vaccination: Yes Hx Pneumococcal Vaccination: No - Social History Hx Tobacco Use: Yes Hx Alcohol Use: No Hx Substance Use: No Hx Substance Use Treatment: No Hx Depression: Yes - Female History Patient : No Family Medical History - Family History Mother Family History: Unknown Living Status: Hx Family Asthma: Yes - copd Hx Cardiac Disease: Yes - dad Hx Family Diabetes: Yes - dad Physical Exam - Physical Exam General Appearance: Alert, Anxious, Obvious distress, Well Developed, Well Groomed, Well Hydrated, Well Nourished Head Injury: no evidence of injury Eye Exam: bilateral normal ENT Exam: hearing grossly normal, no evidence of ENT injury, no dental injury Neck Exam: non-tender, full range of motion, normal alignment, normal inspection Cardiovascular/Respiratory: regular rate, rhythm, no M/R/G, normal peripheral pulses, no JVD, normal breath sounds, no respiratory distress Gastrointestinal/Abdominal: normal bowel sounds, non tender, soft, no organomegaly, no pulsatile mass Back Exam: no CVA tenderness, no vertebral tenderness, decreased range of motion, muscle spasm, other - Patient had no midline crepitus or step-offs in the lumbar spine. She had paraspinal muscle spasm on the left lumbar area. Extremity Exam: pelvis stable, bony-point tenderness - Left lateral foot with bony tenderness as well as the left lateral ankle, the left lateral knee and left hip. 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 07/15/19 13:38 After medication patient's pain scale came down to a 3 out of 10. It is come back up in the interim time. It is now a 7 out of 10. Plan on discharge home with muscle relaxants and pain medication. Additionally, will a wrist wrap the left ankle for comfort and improvement of her ankle sprain. I have discussed this plan of care with the patient and her [id number] and they voiced understanding and agreement. Brian Holder M.D. #[id number] - Results/Orders Results/Orders: X-rays of the left foot, 3 view, left ankle, 3 view, left knee, 3 view, pelvis, 1 view and the lumbar spine, 3 views, were negative for any fractures or dislocations. The left ankle x-ray does show some left lateral soft tissue swelling. Departure - Departure Clinical Impression: Strain of ankle and foot Qualifiers: Encounter type: initial encounter Laterality: left Qualified Code(s): S96.912A - Strain of unspecified muscle and tendon at ankle and foot level, left foot, initial encounter Fall Qualifiers: Encounter type: initial encounter Qualified Code(s): W19.XXXA - Unspecified fall, initial encounter Contusion of hip, left Qualifiers: Encounter type: initial encounter Qualified Code(s): S70.02XA - Contusion of left hip, initial encounter Lumbar spine strain Qualifiers: Encounter type: initial encounter Qualified Code(s): S39.012A - Strain of muscle, fascia and tendon of lower back, initial encounter Left knee sprain Qualifiers: Encounter type: initial encounter Involved ligament of knee: unspecified ligament Qualified Code(s): S83.92XA - Sprain of unspecified site of left knee, initial encounter Time of Disposition: 13:49 Disposition: Discharge to Home or Self Care Condition: Good Departure Forms: ED Discharge - Pt. Copy, Patient Portal Self Enrollment Activity: increase activity as tolerated, walking as tolerated Referrals: Nancy Rubalcava FNP [Primary Care Provider] - 1 Week Prescriptions: Acetamin W/Cod #3 Tab [Tylenol w/CODEINE #3] 1 tablet PO Q6H #12 tab Home Medications: Ambulatory Orders Albuterol Sulfate [Proair Hfa] 2 puff INH Q6H PRN 04/21/17 Estradiol 1 mg PO DAILY 04/21/17 Fenofibrate 160 mg PO DAILY 04/21/17 Venlafaxine HCl [Venlafaxine HCl ER] 75 mg PO DAILY 04/21/17 Acetamin W/Cod #3 Tab [Tylenol w/CODEINE #3] 1 tablet PO Q6H #12 tab 07/15/19 Buspirone HCl [Buspirone Hydrochloride] 7.5 mg PO PRN 07/15/19 Celecoxib [CeleBREX] 100 mg PO BID 07/15/19 Fluoxetine HCl [PROzac] 20 mg PO DAILY 07/15/19 Lamotrigine 100 mg PO BID 07/15/19 Montelukast [Singulair] 10 mg PO DAILY 07/15/19 Tiotropium [place] Monohydrate [Spiriva Handihaler] 1 puff IN DAILY 07/15/19 Trazodone HCl 150 mg PO BEDTIME 07/15/19 tiZANidine [Zanaflex] 4 mg PO BID 07/15/19
[2019-07-15 14:17] VITALS: BP 114/78; TEMP 96.8
== END 2019-07-15 14:17 | disposition home or self-care (01) ==
LOC: ER 10:33
DX: S96.912A Strain of unspecified muscle and tendon at ankle and foot level, left foot, initial encounter (principal); S70.02XA Contusion of left hip, initial encounter; S39.012A Strain of muscle, fascia and tendon of lower back, initial encounter; S83.92XA Sprain of unspecified site of left knee, initial encounter; F32.9 Major depressive disorder, single episode, unspecified; J44.9 Chronic obstructive pulmonary disease, unspecified; W10.9XXA Fall (on) (from) unspecified stairs and steps, initial encounter; Y92.009 Unspecified place in unspecified non-institutional (private) residence as the place of occurrence of the external cause; Z79.899 Other long term (current) drug therapy; Z87.891 Personal history of nicotine dependence
CPT/HCPCS: 72100; 72170; 73562; 73610; 73630; J1170

== ENCOUNTER → 2020-01-06 | Outpatient (CLI) | payer OTHER | LOC: YCFC.O 12:11 | PROVIDERS: ATTEND Family Medicine | DX: Z20.828 Contact with and (suspected) exposure to other viral communicable diseases (principal) ==

== ENCOUNTER → 2020-04-07 | Outpatient (CLI) | payer OTHER ==
--- NOTE | 2020-04-09 16:28 | MAM ---
EXAM DESCRIPTION: 3D Screening BILATERAL : Digital Mammography. CLINICAL HISTORY: 59 years Female SCREEN . No complaints. Remote family history of breast cancer. Menarche age 18. Childbirth age 24. Hysterectomy age 42. Currently HRT. Benign left breast cyst aspiration and biopsy.. Lifetime risk of developing breast cancer (Tyrer-Cuzick model)(%): 6.5. COMPARISON: Bilateral screening digital breast tomosynthesis April 2019 and March 2018.. TECHNIQUE: Bilateral CC and MLO projection full-field images, digital tomosynthesis mammographic technique. Bilateral digital 2-D full-field MLO images. CAD available for 2-D images. FINDINGS: The breast parenchymal density pattern is: Scattered areas of fibroglandular density. No skin thickening or nipple retraction. Fibroglandular tissues predominantly around the posterior nipple line in the anterior breast bilaterally. Nodular-type fibroglandular tissues. Biopsy site marker mid superior lateral left breast. Stable. Solitary microcalcifications. No new focal, stellate mass or density, focal asymmetry , and no suspicious microcalcifications bilaterally. Stable mammograms compared to prior study. IMPRESSION: Benign exam. BIRAD CATEGORY: 2 BENIGN FINDINGS. RECOMMENDATIONS: FOLLOW UP: Routine digital bilateral mammographic screening, one year interval from April 2020. Written communication explaining the IMPRESSION and follow-up, will be mailed to the patient and referring health care provider. According to the [employer], yearly mammograms are recommended starting at age 40 and continuing as long as a woman is in good health. Any breast change noted on a breast self-exam should be reported promptly to the patient's healthcare provider. Breast MRI is recommended for women with an approximately 20-25% or greater lifetime risk of breast cancer, including women with a strong family history of breast or ovarian cancer and women who have been treated for Hodgkin's disease. A negative mammographic report should not delay tissue diagnosis in patients with significant clinical history or physical findings. Extremely dense breast tissue limits the sensitivity of digital mammography. Electronically signed by: Andres Pal MD 04/09/2020 4:27 PM CDT
== END ==
LOC: MAMMO 07:33
PROVIDERS: ATTEND Nurse Practitioner
DX: Z00.00 Encounter for general adult medical examination without abnormal findings (principal); Z12.31 Encounter for screening mammogram for malignant neoplasm of breast; R41.3 Other amnesia

== ENCOUNTER → 2020-04-15 | Outpatient (CLI) | payer OTHER ==
--- NOTE | 2020-04-16 08:40 | CT ---
Procedure: CT LUNG SCREENING Exam Date: April 15, 2020. Ordering Provider: Sami Mcguire Clinical Indication: PERSONAL HISTORY OF TOBACCO DEPENDENCE . Smoking cessation x7 years. 10-20 pack years. This patient meets eligibility criteria for low-dose CT lung cancer screening. Comparison: Low-dose CT lung cancer screening April 2019 and April 2018. Lung RADS category 1. Technique: Using a multislice scanner, sequential helical axial imaging was obtained in the thorax, 2.5 mm thickness, 2.5 mm separation, from the level of the thoracic inlet through the lung bases without IV contrast. A low dose protocol was utilized for BMI less than 30: BMI: 25. CTDI: 1.76 mGy. 120. kVp. 45 mA. DLP 68 mGy-cm. 2D sagittal and coronal reconstructed images, 6.0 mm thickness, were obtained. This exam was performed according to our departmental dose optimization program which includes use of automated exposure control, adjustment of the mA and/or kV according to patient size and/or use of iterative reconstruction technique. Nodule measurements under 10 mm are given as mean value of 3 axes diameters. FINDINGS: Lungs and large airways: Bilateral pleural-parenchymal scarring is stable. Minimal bilateral septal thickening. No abnormal nodules and no mass. No new or focal infiltrates. Pleura and space: Minimal thickening with no calcifications. No acute process. Mediastinum and hood: evaluation limited by low dose technique and lack of IV contrast. Chronic minimal pericardial thickening stable. Small lymph nodes with no dominant soft tissue mass no interval change. Heart and great vessels: Minimal coronary artery calcification at the bifurcation of the left main vessel. Not seen on the prior study. Chest wall, lower neck, axillae: Evaluation also limited by same factors as described above. Negative. Upper abdomen: Evaluation limited by low-dose technique. Surgical clips in the gallbladder fossa with no fluid. Normal size and density of the adrenal glands and included spleen. Osseous structures: Evaluation limited by low dose MIP technique. Minimal disc space narrowing. No significant joint space arthrosis. IMPRESSION: 1. Chronic changes and scarring. No abnormal nodule and no mass. No new focal infiltrate. [facility] Best Practice Recommendations: please see below for Lung RADS category and FOLLOW-UP.* *Lung RADS category Category 1S - No nodule or definitely benign nodules (probability of malignancy less than 1%). Follow-up: Continue annual screening with Low Dose Chest CT in 12 months. 2. Lung RADS Modifier S - Clinically Significant or Potentially Clinically Significant Findings (non lung cancer). Coronary artery calcification detected; not seen on the prior study. Electronically signed by: Andres Pal MD 04/16/2020 8:39 AM CDT
== END ==
LOC: CT 10:23
PROVIDERS: ATTEND Family Medicine
DX: R91.8 Other nonspecific abnormal finding of lung field (principal); Z12.2 Encounter for screening for malignant neoplasm of respiratory organs; Z87.891 Personal history of nicotine dependence

== ENCOUNTER 2020-06-19 14:59 | Emergency (ER) | payer OTHER ==
[2020-06-19] MEDS ORDERED: DEXAMETHASONE INJ 10 MG/ML VIAL IM ONE (16:04)
--- NOTE | 2020-06-19 17:52 | ED.PDOC ---
History of Present Illness - General Chief Complaint: Respiratory Problem Time Seen by Provider: 06/19/20 15:57 - History of Present Illness Comments: 59F presents to the ED with fatigue, cough, upper back pain for the past 3-5 days. Worse with cough and deep breathing. No fever but she has had associated chills. No vomiting/diarrhea. No changes to taste or smell. PMH is significant for COPD, chronic back pain, hepatitis C. She was originally seen in the urgent care but states that she is concerned she may have pneumonia and was referred to the ER for chest x-ray. No other complaints at this time. Allergies/Adverse Reactions: Allergies NO KNOWN ALLERGY Allergy (Verified 09/15/18 20:08) Home Medications: Ambulatory Orders Albuterol Sulfate [Proair Hfa] 2 puff INH Q6H PRN 04/21/17 Estradiol 1 mg PO DAILY 04/21/17 Fenofibrate 160 mg PO DAILY 04/21/17 Venlafaxine HCl [Venlafaxine HCl ER] 75 mg PO DAILY 04/21/17 Acetamin W/Cod #3 Tab [Tylenol w/CODEINE #3] 1 tablet PO Q6H #12 tab 07/15/19 Buspirone HCl [Buspirone Hydrochloride] 7.5 mg PO PRN 07/15/19 Celecoxib [CeleBREX] 100 mg PO BID 07/15/19 Fluoxetine HCl [PROzac] 20 mg PO DAILY 07/15/19 Lamotrigine 100 mg PO BID 07/15/19 Montelukast [Singulair] 10 mg PO DAILY 07/15/19 Tiotropium [place] Monohydrate [Spiriva Handihaler] 1 puff IN DAILY 07/15/19 Trazodone HCl 150 mg PO BEDTIME 07/15/19 tiZANidine [Zanaflex] 4 mg PO BID 07/15/19 Albuterol Sulfate Nebs [Proventil Nebs] 2.5 mg INH Q6HR PRN #20 vial 06/19/20 Benzonatate Perles [Tessalon Perles] 100 mg PO TID #20 cap 06/19/20 Prednisone 60 mg PO DAILY #15 tab 06/19/20 Review of Systems - Review of Systems Constitutional: States: chills, fever, malaise EENTM: States: no symptoms reported Respiratory: States: cough, short of breath, wheezing Cardiology: Denies: chest pain, palpitations, syncope Gastrointestinal/Abdominal: Denies: abdominal pain, diarrhea, nausea, vomiting Genitourinary: States: no symptoms reported Musculoskeletal: States: muscle pain, muscle stiffness Skin: States: no symptoms reported Neurological: States: no symptoms reported Endocrine: States: no symptoms reported Hematologic/Lymphatic: States: no symptoms reported Past Medical History (General) - Patient Medical History Hx Seizures: No Hx Stroke: No Hx Dementia: No Hx Asthma: Yes Hx of COPD: Yes Hx Cardiac Disorders: No Hx Congestive Heart Failure: No Hx Pacemaker: No Hx Hypertension: No Hx Thyroid Disease: No Hx Diabetes: No Hx Gastroesophageal Reflux: No Hx Renal Disease: No Hx Cancer: No Hx of HIV: No Hx Hepatitis C: No Hx MRSA: No - Vaccination History Hx Tetanus, Diphtheria Vaccination: No Hx Influenza Vaccination: Yes Hx Pneumococcal Vaccination: No - Social History Hx Tobacco Use: Yes Hx Alcohol Use: No Hx Substance Use: No Hx Substance Use Treatment: No Hx Depression: Yes - Female History Patient : No Family Medical History - Family History Mother Family History: Unknown Living Status: Hx Family Asthma: Yes - copd Hx Cardiac Disease: Yes - dad Hx Family Diabetes: Yes - dad Physical Exam - Physical Exam General Appearance: Alert, Comfortable, No apparent distress ENT Exam: normal ENT inspection, hearing grossly normal, TMs normal, pharynx normal Neck: non-tender, full range of motion, supple Respiratory: chest non-tender, lungs clear, normal breath sounds, no respiratory distress, no accessory muscle use Cardiovascular/Chest: normal peripheral pulses, regular rate, rhythm, no edema, no gallop, no JVD, no murmur Gastrointestinal/Abdominal: non tender, soft Extremity: normal range of motion Neurologic: no motor/sensory deficits, alert, normal mood/affect, oriented x 3 Skin Exam: normal color Lymphatic: no adenopathy Progress - Progress Progress: 06/19/20 18:49 Patient assessed as above, test positive for rhinovirus. Discussed findings with the patient, will continue outpatient management with symptomatic care and treatment for COPD. She will follow up with her PCP. Home care instructions and return indications reviewed. - Results/Orders Results/Orders: Laboratory Results - last 24 hr 06/19/20 06/19/20 16:11 16:11 WBC 5.9 RBC 3.62 L Hgb 11.7 L Hct 33.9 L MCV 93.6 MCH 32.3 H MCHC 34.5 RDW 13.0 Plt Count 277 MPV 7.2 L Absolute Neuts (auto) 2.70 Absolute Lymphs (auto) 2.50 Absolute Monos (auto) 0.50 Absolute Eos (auto) 0.10 Absolute Basos (auto) 0.10 Neutrophils % 46.3 Lymphocytes % 42.9 Monocytes % 7.7 Eosinophils % 2.1 Basophils % 1.0 Sodium 140 Potassium 3.8 Chloride 104 Carbon Dioxide 25 Anion Gap 14.8 BUN 20 H Creatinine 0.72 BUN/Creatinine Ratio 27.8 H Random Glucose 93 Serum Osmolality 281.7 Calcium 9.2 MDM: Patient presents with URI symptoms, concern for pneumonia. CXR is clear without focal findings and PCR is positive for rhinovirus. No hypoxia or increased work of breathing. Will continue outpatient symptomatic management and she will follow up with her PCP. Home care instructions and return indications reviewed. Departure - Departure Clinical Impression: Upper respiratory tract infection Qualifiers: URI type: unspecified viral URI Qualified Code(s): J06.9 - Acute upper respiratory infection, unspecified Time of Disposition: 18:51 Disposition: Discharge to Home or Self Care Condition: Good Departure Forms: ED Discharge - Pt. Copy, Patient Portal Self Enrollment Instructions: Viral Upper Respiratory Infection, Adult (DC) Diet: resume usual diet Activity: increase activity as tolerated Referrals: Nancy Rubalcava FNP [Primary Care Provider] - 1-2 Weeks Prescriptions: Albuterol Sulfate Nebs [Proventil Nebs] 2.5 mg INH Q6HR PRN #20 vial PRN Reason: Wheezing Prednisone 60 mg PO DAILY #15 tab Benzonatate Perles [Tessalon Perles] 100 mg PO TID #20 cap Home Medications: Ambulatory Orders Albuterol Sulfate [Proair Hfa] 2 puff INH Q6H PRN 04/21/17 Estradiol 1 mg PO DAILY 04/21/17 Fenofibrate 160 mg PO DAILY 04/21/17 Venlafaxine HCl [Venlafaxine HCl ER] 75 mg PO DAILY 04/21/17 Acetamin W/Cod #3 Tab [Tylenol w/CODEINE #3] 1 tablet PO Q6H #12 tab 07/15/19 Buspirone HCl [Buspirone Hydrochloride] 7.5 mg PO PRN 07/15/19 Celecoxib [CeleBREX] 100 mg PO BID 07/15/19 Fluoxetine HCl [PROzac] 20 mg PO DAILY 07/15/19 Lamotrigine 100 mg PO BID 07/15/19 Montelukast [Singulair] 10 mg PO DAILY 07/15/19 Tiotropium [place] Monohydrate [Spiriva Handihaler] 1 puff IN DAILY 07/15/19 Trazodone HCl 150 mg PO BEDTIME 07/15/19 tiZANidine [Zanaflex] 4 mg PO BID 07/15/19 Albuterol Sulfate Nebs [Proventil Nebs] 2.5 mg INH Q6HR PRN #20 vial 06/19/20 Benzonatate Perles [Tessalon Perles] 100 mg PO TID #20 cap 06/19/20 Prednisone 60 mg PO DAILY #15 tab 06/19/20
--- NOTE | 2020-06-19 18:40 | RAD ---
EXAM: XR Chest, 1 View CLINICAL HISTORY: The patient is 59 years old and is Female; cough, shortness of breath TECHNIQUE: Single view of the chest. COMPARISON: October 09, 2006. FINDINGS: Lungs: Unremarkable. No consolidation. Pleural space: Unremarkable. No pneumothorax. Heart: Unremarkable. No cardiomegaly. Mediastinum: Unremarkable. Bones/joints: Mild scoliosis. No acute rib fracture visualized. Upper abdomen: No free air in the visualized upper abdomen. IMPRESSION: No acute cardiopulmonary process identified. Electronically signed by: Dinora Ceballos MD 06/19/2020 6:38 PM [facility]
[2020-06-19 19:01] VITALS: TEMP 98.2
[2020-06-19 19:03] VITALS: O2SAT 98
[2020-06-19 19:05] VITALS: BP 144/86
== END 2020-06-19 19:05 | disposition home or self-care (01) ==
LOC: ER 14:59
DX: J06.9 Acute upper respiratory infection, unspecified (principal); J44.9 Chronic obstructive pulmonary disease, unspecified; F32.9 Major depressive disorder, single episode, unspecified; Z20.828 Contact with and (suspected) exposure to other viral communicable diseases; Z87.891 Personal history of nicotine dependence; Z79.899 Other long term (current) drug therapy; Z86.19 Personal history of other infectious and parasitic diseases
CPT/HCPCS: 36415; 71045; 80048; 85025; 87486; 87581; 87633; 87635; J1100

== ENCOUNTER 2020-07-03 10:17 | Emergency (ER) | payer OTHER ==
[2020-07-03] MEDS ORDERED: ONDANSETRON ODT 8 MG TAB SL ONE (10:31)
[2020-07-03] MEDS ORDERED: MORPHINE SULFATE INJ 10 MG/ML VIAL IM ONE (10:32)
--- NOTE | 2020-07-03 11:51 | ED.PDOC ---
History of Present Illness - General Chief Complaint: Trauma Stated Complaint: fall; pain Time Seen by Provider: 07/03/20 10:29 Source: patient, RN notes reviewed, Vital Signs reviewed Exam Limitations: no limitations - History of Present Illness Initial Comments: Is a 59-year-old white female who slipped and fell on her stairs yesterday and is now complaining of right buttock pain, shoulder pain, and hip pain,. The pain is constant. It is worse with movement. It is moderate in intensity. It is aching/throbbing in nature. There is no radiation of the pain. Occurred: yesterday Severity: moderate Pain Location: chest, upper extremity, lower extremity Method of Injury: fall Improving Factors: nothing Worsening Factors: movement Loss of Consciousness: no loss of consciousness Associated Symptoms (Fall): denies symptoms Allergies/Adverse Reactions: Allergies NO KNOWN ALLERGY Allergy (Verified 09/15/18 20:08) Home Medications: Ambulatory Orders Albuterol Sulfate [Proair Hfa] 2 puff INH Q6H PRN 04/21/17 Estradiol 1 mg PO DAILY 04/21/17 Fenofibrate 160 mg PO DAILY 04/21/17 Buspirone HCl [Buspirone Hydrochloride] 7.5 mg PO BID PRN 07/15/19 Celecoxib [CeleBREX] 100 mg PO BID 07/15/19 Lamotrigine 100 mg PO BEDTIME 07/15/19 Tiotropium [place] Monohydrate [Spiriva Handihaler] 1 puff IN DAILY 07/15/19 Trazodone HCl 150 mg PO BEDTIME 07/15/19 tiZANidine [Zanaflex] 4 mg PO BEDTIME 07/15/19 Albuterol Sulfate Nebs [Proventil Nebs] 2.5 mg INH Q6HR PRN #20 vial 06/19/20 Benzonatate Perles [Tessalon Perles] 100 mg PO TID PRN 07/03/20 Fluoxetine HCl 20 mg PO DAILY 07/03/20 Gabapentin 300 mg PO BID 07/03/20 Review of Systems - Review of Systems Constitutional: States: no symptoms reported, see HPI. Denies: chills, fever, malaise, weakness EENTM: States: no symptoms reported. Denies: eye pain, blurred vision, double vision Respiratory: States: no symptoms reported. Denies: cough, short of breath, stridor Cardiology: States: no symptoms reported. Denies: chest pain, palpitations, syncope Gastrointestinal/Abdominal: States: no symptoms reported. Denies: abdominal pain, diarrhea, nausea, vomiting Genitourinary: States: no symptoms reported. Denies: dysuria, frequency Musculoskeletal: States: joint pain, muscle pain, muscle stiffness Skin: States: no symptoms reported. Denies: change in color, rash Neurological: States: no symptoms reported. Denies: headache, tingling, tremors, weakness Endocrine: States: no symptoms reported. Denies: increased hunger, increased thirst, increased urine Hematologic/Lymphatic: States: no symptoms reported. Denies: blood clots, easy bleeding All other Systems: Reviewed and Negative Past Medical History (General) - Patient Medical History Hx Seizures: No Hx Stroke: No Hx Dementia: No Hx Asthma: Yes Hx of COPD: Yes Hx Cardiac Disorders: No Hx Congestive Heart Failure: No Hx Pacemaker: No Hx Hypertension: No Hx Thyroid Disease: No Hx Diabetes: No Hx Gastroesophageal Reflux: No Hx Renal Disease: No Hx Cancer: No Hx of HIV: No Hx Hepatitis C: No Hx MRSA: No Surgical History: cholecystectomy, tonsillectomy, Hysterectomy, other - Vaccination History Hx Tetanus, Diphtheria Vaccination: No Hx Influenza Vaccination: Yes Hx Pneumococcal Vaccination: No - Social History Hx Tobacco Use: Yes - quit 2012 Hx Alcohol Use: No Hx Substance Use: No Hx Substance Use Treatment: No Hx Depression: Yes - Female History Patient : No Family Medical History - Family History Mother Family History: Unknown Living Status: Hx Family Asthma: Yes - copd Hx Cardiac Disease: Yes - dad Hx Family Diabetes: Yes - dad Physical Exam - Physical Exam General Appearance: Alert, Anxious, Well Developed, Well Groomed, Well Hydrated, Well Nourished Head Injury: no evidence of injury Eye Exam: bilateral normal ENT Exam: hearing grossly normal, no evidence of ENT injury, no dental injury Neck Exam: non-tender, full range of motion, normal alignment, normal inspection Cardiovascular/Respiratory: regular rate, rhythm, no M/R/G, normal peripheral pulses, no JVD, normal breath sounds, no respiratory distress Back Exam: normal inspection, no CVA tenderness, no vertebral tenderness Extremity Exam: pelvis stable, bony-point tenderness - Right hip, left shoulder., other - Patient with bruising over the right buttock. 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 - Jonnathan Coma Score Best Eye Response ([place]): (4) open spontaneously Best Verbal Response ([place]): (5) oriented Best Motor Response ([place]): (6) obeys commands Jonnathan Total: 15 Progress - Progress Progress: Differential diagnosis: Pelvis fracture, buttock contusion, right shoulder fracture, right shoulder girdle sprain, among others 07/03/20 12:17 X-rays are negative for any fractures. I note the patient is feeling better though she is still sore. Patient is already on Celebrex at home so will alternate with Tylenol. I have discussed the plan of care with the patient and shown her exercises to increase mobility and limber notes of the joints. She is in agreement with the plan of care to discharge home with follow-up with PCP. Brian Holder M.D. #[id number] - Results/Orders Results/Orders: EXAM: X-RAY, Chest (1 View) HISTORY: fall with clavicle pain. COMPARISON: Chest x-ray from 09/15/2018. TECHNIQUE: AP view of the chest. FINDINGS: Lungs: The lungs are clear. Pleural space: No pneumothorax or pleural effusion is present. Heart: The heart is normal in size. Bones: No acute bone abnormality. IMPRESSION: No acute cardiopulmonary finding. Electronically signed by: Matthew Hernandez MD 07/03/2020 11:47 AM EXAM: X-RAY, one view of the pelvis and two views of the right hip HISTORY: fall with right hip pain. COMPARISON: None. FINDINGS: Bones: No fracture or dislocation. Maintained joint spaces of both hips. Soft tissues: Mild soft tissue swelling over the right hip. IMPRESSION: No acute bone abnormality. Electronically signed by: Matthew Hernandez MD 07/03/2020 11:50 AM EXAM: X-RAY, one view of the pelvis and two views of the right hip HISTORY: fall with right hip pain. COMPARISON: None. FINDINGS: Bones: No fracture or dislocation. Maintained joint spaces of both hips. Soft tissues: Mild soft tissue swelling over the right hip. IMPRESSION: No acute bone abnormality. Electronically signed by: Matthew Hernandez MD 07/03/2020 11:50 AM EXAM: X-RAY, two views of the right shoulder HISTORY: fall with shoulder pain. COMPARISON: None. FINDINGS: Bones: No fracture or dislocation. Soft tissues: No focal soft tissue swelling. IMPRESSION: No acute bone abnormality. 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 Vital Signs 07/03/20 07/03/20 10:26 11:00 Temperature 97.2 F L Pulse Rate [ 67 61 left brachial] Respiratory 22 20 Rate Blood Pressure 137/80 123/76 [left brachial] O2 Sat by Pulse 97 97 Oximetry Departure - Departure Clinical Impression: Fall (on) (from) other stairs and steps, initial encounter, Multiple contusions Fall Qualifiers: Encounter type: initial encounter Qualified Code(s): W19.XXXA - Unspecified fall, initial encounter Sprain of shoulder, right Qualifiers: Encounter type: initial encounter Shoulder sprain type: unspecified sprain Qualified Code(s): S43.401A - Unspecified sprain of right shoulder joint, initial encounter Time of Disposition: 12:19 Disposition: Discharge to Home or Self Care Condition: Good Departure Forms: ED Discharge - Pt. Copy, Patient Portal Self Enrollment Instructions: DI for Trauma, Shoulder Sprain (DC), Contusion (DC), Preventing Falls in the Older Adult Diet: resume usual diet Activity: increase activity as tolerated Referrals: Nancy Rubalcava FNP [Primary Care Provider] - 1-5 Days Home Medications: Ambulatory Orders Albuterol Sulfate [Proair Hfa] 2 puff INH Q6H PRN 04/21/17 Estradiol 1 mg PO DAILY 04/21/17 Fenofibrate 160 mg PO DAILY 04/21/17 Buspirone HCl [Buspirone Hydrochloride] 7.5 mg PO BID PRN 07/15/19 Celecoxib [CeleBREX] 100 mg PO BID 07/15/19 Lamotrigine 100 mg PO BEDTIME 07/15/19 Tiotropium [place] Monohydrate [Spiriva [place]er] 1 puff IN DAILY 07/15/19 Trazodone HCl 150 mg PO BEDTIME 07/15/19 tiZANidine [Zanaflex] 4 mg PO BEDTIME 07/15/19 Albuterol Sulfate Nebs [Proventil Nebs] 2.5 mg INH Q6HR PRN #20 vial 06/19/20 Benzonatate Perles [Tessalon Perles] 100 mg PO TID PRN 07/03/20 Fluoxetine HCl 20 mg PO DAILY 07/03/20 Gabapentin 300 mg PO BID 07/03/20
[2020-07-03 12:53] VITALS: BP 112/66; TEMP 97.5; O2SAT 98
== END 2020-07-03 12:36 | disposition home or self-care (01) ==
LOC: ER 10:17
DX: S43.401A Unspecified sprain of right shoulder joint, initial encounter (principal); S30.0XXA Contusion of lower back and pelvis, initial encounter; M25.551 Pain in right hip; J44.9 Chronic obstructive pulmonary disease, unspecified; Z87.891 Personal history of nicotine dependence; Z79.899 Other long term (current) drug therapy; W10.9XXA Fall (on) (from) unspecified stairs and steps, initial encounter; Y92.9 Unspecified place or not applicable
CPT/HCPCS: 71045; 72170; 73030; 73502; J2270

== ENCOUNTER → 2020-08-27 | Outpatient (CLI) | payer OTHER ==
--- NOTE | 2020-08-29 16:42 | RAD ---
XR KNEE 4 OR MORE VIEWS HISTORY: 59 years Female PAIN IN LEFT KNEE COMPARISON: July 15, 2019. TECHNIQUE: 4 views of the left knee. FINDINGS: No acute fracture or dislocation observed. No focal osseous lesion identified. Mild narrowing of the medial knee joint compartment. Lateral joint compartment appears maintained. Mild tricompartmental osteophytosis. Suspected small left knee joint effusion. IMPRESSION: No acute osseous abnormality observed in the left knee. Mild tricompartmental degenerative changes, most pronounced at the medial knee joint compartment. Electronically signed by: J Luis Samuel MD 08/29/2020 4:40 PM [facility]
== END ==
LOC: YCFC.O 11:00
PROVIDERS: ATTEND Nurse Practitioner
DX: M17.12 Unilateral primary osteoarthritis, left knee (principal)